=== PATIENT | male | born 1970 | race Caucasian/White ===

== ENCOUNTER 2024-08-25 14:37 | Emergency (ER) | payer MEDICARE, MEDICAID, SELFPAY ==
[2024-08-25 14:41] VITALS: BP 146/92; PULSE 100; RESP 16; TEMP 36.4; O2SAT 95
[2024-08-25 14:59] VITALS: BP 146/92; PULSE 100; RESP 16; TEMP 36.4; O2SAT 95
--- NOTE | 2024-08-25 15:00 | DI.RAD_ITS ---
Exam(s) XR KNEE LT 3V AP,LAT,CASI EXAM: XR KNEE LT 3V AP,LAT,CASI CLINICAL HISTORY: acute on chronic left knee pain. TECHNIQUE: 2D digital imaging was performed. COMPARISON: No exams were available for comparison FINDINGS: 3 views No evidence of acute fracture nor obvious joint effusion. However, there are osteoarthritic degenerative changes which are most prominent in the patellofemoral compartment where there appears to be advanced narrowing and degenerative subarticular cysts on both sides of this joint space. There are milder-moderate degenerative changes in the medial lateral com partments. No ominous osseous lesions. No radiopaque foreign bodies. IMPRESSION: Degenerative changes, most prominent in the patellofemoral compartment. If clinically indicated genaro tional merchant's view can be performed. DATA REPOSITORY: RADIATION DOSE DELIVERED:
--- NOTE | 2024-08-25 15:03 | ED.GENADUL_ITS ---
Discharge Plan Disposition Patient Disposition: Home Condition: Improving Discharge Details Clinical Impression: Osteoarthritis Primary Care Provider: Unknown,Unknown ED Provider: Joce Thrasher Home Meds and New Rx's Prescriptions: New furosemide [Lasix] 40 mg tablet 40 mg PO DAILY 5 Days Qty: 5 0RF No Action omeprazole 20 mg capsule,delayed release(DR/EC) 20 mg PO BID amitriptyline 10 mg tablet 20 mg PO BID pregabalin [Lyrica] 25 mg capsule 25 mg PO BID celecoxib [Celebrex] 200 mg capsule 200 mg PO BID Discharge Instructions Instructions: Osteoarthritis Additional Instructions: Please follow-up with orthopedic team regarding your osteoarthritis of left knee to consider further diagnostic and treatment modalities. Please return to the emergency department for any worsening symptoms HPI General Date/Time Provider Initiated Documentation: 08/25/24 14:46 . HPI Narrative: 64-year-old male history of peripheral edema obesity chronic left knee pain presents with acute on chronic left knee pain over the past several weeks to months, twisted his knee has had pain for some time, has history of gel injections and steroid injections without long-term benefit, denies fevers chills nausea vomiting chest pain shortness of breath or other systemic signs of illness. Has noticed some swelling in bilateral lower extremities, endorses that usually this time of year his edema gets worse. Has been without a doctor for some time was on Lasix at some point. Related Data Home Medications ?Medication ?Instructions ?Recorded ?Confirmed amitriptyline 10 mg tablet 20 mg PO BID 08/25/24 08/25/24 celecoxib 200 mg capsule (Celebrex) 200 mg PO BID 08/25/24 08/25/24 furosemide 40 mg tablet (Lasix) 40 mg PO DAILY 5 days #5 tabs 08/25/24 omeprazole 20 mg capsule,delayed 20 mg PO BID 08/25/24 08/25/24 release pregabalin 25 mg capsule (Lyrica) 25 mg PO BID 08/25/24 08/25/24 Previous Rx's ?Medication ?Instructions ?Recorded furosemide 40 mg tablet (Lasix) 40 mg PO DAILY 5 days #5 tabs 08/25/24 Allergies Allergy/AdvReac Type Severity Reaction Status Date / Time No Known Allergies Allergy Unverified 08/25/24 14:44 General Stated Complaint: Cellulitis SHANNON: 3 Exam Narrative Exam Narrative: Alert interactive Moist mucous membranes tolerating secretions Normal voice no stridor Speaking full sentences no respiratory stress lungs clear bilaterally no wheeze rales or rhonchi Normal heart sounds no murmurs rubs or gallops Abdomen soft nontender nondistended Bilateral peripheral edema to level of shins with chronic venous stasis changes No areas of erythema induration fluctuance purulence or lymphangitic streaking Left knee effusion without erythema induration or warmth, able to flex and extend both actively and passively, normal right knee examination DP pulses intact, sensation intact bilaterally Alert oriented moving all extremities ambulatory without assistance Course Vital Signs Vital signs: Vital Signs Temperature 36.4 C 08/25/24 14:41 Pulse 100 H 08/25/24 14:41 Respiratory Rate 16 08/25/24 14:41 Blood Pressure 146/92 H 08/25/24 14:41 Pulse Oximetry 95 08/25/24 14:41 Temperature 36.4 C 08/25/24 14:59 Temperature Source Oral 08/25/24 14:59 Pulse 100 H 08/25/24 14:59 Respiratory Rate 16 08/25/24 14:59 Respiratory Effort Normal 08/25/24 14:59 Blood Pressure 146/92 H 08/25/24 14:59 Blood Pressure Position Sitting 08/25/24 14:59 Pulse Oximetry 95 08/25/24 14:59 Oxygen Delivery Method Room Air 08/25/24 14:59 Oxygen Flow Rate 0 08/25/24 14:41 Pain Level 8 08/25/24 14:41 Medical Decision Making 54-year-old male presents with acute on chronic left knee pain over the last several weeks to months, believes he may have twisted his knee, denies fevers chills or other systemic signs of illness, bilateral peripheral edema consistent with fluid retention patient endorses fluctuating edema over the last couple of years worse in the cooler months, no chest pain or shortness of breath no hypoxia no tachypnea, hypertension tachycardia likely related to discomfort, patient has effusion to left knee with passive and active range of motion intact, warm well-perfused extremities sensate, ambulatory without assistance, no crepitus laxity or deformity to knee noted, high clinical suspicion for progressive osteoarthritis lower suspicion for septic joint given afebrile status chronic nature and range of motion intact lower suspicion for hemarthrosis given no definitive trauma although patient did sense that he may have twisted his knee in the last couple of weeks. Will provide analgesia anti- inflammatory and a dose of Lasix as patient has been intermittently on Lasix for some time however has been without a physician and does not have a prescription for Lasix anymore. Low suspicion for ACS, acute CHF exacerbation cellulitis deep space abscess fasciitis or vascular insult. Close reassessment symptomatology, screening x-ray, likely orthopedic referral 15: 57 patient feeling much better resting notably no acute distress. Evidence of chronic degenerative changes consistent with osteoarthritis of the left knee. Will be given orthopedic referral. Will prescribe Lasix for home treatment of peripheral edema. Home care instructions and return precautions given Quality:SDOH Health Related Social Needs: No Data to Display PFSH All Active Problems (Updated 08/25/24 @ 15:58 by Joce Thrasher MD) Osteoarthritis (Chronic) Social History Smoking risk assessment performed?: No
[2024-08-25] MEDS: Ketorolac 15 MG/ML VIAL IM (15:09)
[2024-08-25] MEDS: oxyCODONE 5 mg/Acetaminophen 325 mg TAB 1 TAB PO (15:10)
[2024-08-25] MEDS: Furosemide 20 MG TAB 40 MG PO (15:15)
== END 2024-08-25 16:05 | disposition home or self-care (01) ==
PROVIDERS: Emergency Provider Emergency Medicine
DX: M19.071 Primary osteoarthritis, right ankle and foot (principal)
CPT/HCPCS: 73562; 99283; J1885

== ENCOUNTER 2024-09-16 10:27 | Emergency (ER) | payer MEDICARE, MEDICAID, SELFPAY ==
[2024-09-16] VITALS (7 sets, daily range): BP systolic 103–137; BP diastolic 60–86; PULSE 58–78; RESP 14–21; TEMP 36.4; O2SAT 94–97
--- NOTE | 2024-09-16 10:30 | RT.EKG_ITS ---
APPROVED REPORT Exam: Resting ECG Reason for Exam: chest pain Patient Location: E HR:71 bpm ECG Measurements Heart Rate 71 AXIS DE 155 P 42 QRSd 100 QRS 82 QT 375 T 32 QTc 406 Conclusion Sinus rhythm...normal P axis, V-rate 60- 99 Physician: no stemi
[2024-09-16 11:08] LABS: Abs Immature Grans 0.02 10^3/uL (0.0-0.06); Absolute Basophil Count 0.04 10^3/uL (0.0-0.2); Absolute Eosinophil Count 0.13 10^3/uL (0.0-0.7); Absolute Lymphocyte Count 2.22 10^3/uL (1.2-3.4); Absolute Monocyte Count 0.52 10^3/uL (0.1-0.8); Absolute Neutrophil Count 3.54 10^3/uL (1.2-6.7); Basophils % 0.6 %; HCT 43.3 % (40.0-50.0); HGB 14.7 g/dL (13.5-17.5); Immature Grans % 0.3 %; Lymphocytes % 34.3 %; MCH 30.2 pg (27.0-33.0); MCHC 33.9 % (32.0-36.0); MCV 89 fL (80-95); Neutrophils % 54.8 %; Platelet Count 198 10^3/uL (130-400); RBC 4.86 10^6/uL (4.36-5.78); RDW 13.3 % (11.8-14.1); WBC 6.47 10^3/uL (4.4-10.8)
--- NOTE | 2024-09-16 11:22 | DI.RAD_ITS ---
Exam(s) XR PORTABLE CHEST AP EXAM: XR PORTABLE CHEST AP CLINICAL HISTORY: sob TECHNIQUE: 2D digital imaging was performed of the chest. One image was obtained. An AP view was ob tained. COMPARISON: No exams were available for comparison FINDINGS: MEDIASTINUM: Normal. HEART: Normal. PULMONARY VASCULATURE: Normal. LUNGS: Clear. PLEURAL SPACE: No pleural effusion or pneumothorax. BONE:Within normal limits for the patient's age. OTHER FINDINGS:Normal. IMPRESSION: No acute pulmonary findings. DATA REPOSITORY: RADIATION DOSE DELIVERED:
[2024-09-16 11:25] LABS: PTT Activated 24.5 sec (23.6-32.8); Prothrombin Time 10.1 sec (9.1-11.1)
[2024-09-16 11:30] LABS: ALT 60 U/L (16-63); AST 44 U/L (15-37); Alkaline Phosphatase 78 U/L (46-116); Anion Gap 5.9 mmol/L (3-11); BUN 22 mg/dL (7-18); Bilirubin, Total 0.56 mg/dL (0.2-1.0); CO2 29.1 mmol/L (21.0-32.0); CREATININE 1.1 mg/dL (0.70-1.30); Calcium 9.4 mg/dL (8.5-10.1); Chloride 107 mmol/L (98-107); Estimated GFR 80.27 (mL/min/1.73m2); Glucose 102 mg/dL (74-106); Magnesium 2.2 mg/dL (1.8-2.4); Potassium 4.8 mmol/L (3.5-5.1); Sodium 142 mmol/L (136-145); Total Protein 7.8 g/dL (6.4-8.2); Troponin I 5 ng/L (<or=76)
[2024-09-16 12:35] LABS: Troponin I 7 ng/L (<or=76)
--- NOTE | 2024-09-16 12:41 | W.ED.GENAD ---
Discharge Plan Disposition Patient Disposition: Home Condition: Good Discharge Details Clinical Impression: Chest discomfort, Candidiasis of mouth Primary Care Provider: Unknown,Unknown ED Provider: Sumanth Salazar Home Meds and New Rx's Prescriptions: New nystatin 100,000 unit/mL suspension 1 ml PO QID 10 Days Qty: 40 0RF Rx Instructions: swish and swallow No Action omeprazole 20 mg capsule,delayed release(DR/EC) 20 mg PO BID amitriptyline 10 mg tablet 20 mg PO BID pregabalin [Lyrica] 25 mg capsule 25 mg PO BID celecoxib [Celebrex] 200 mg capsule 200 mg PO BID Discharge Instructions Instructions: Thrush in adults, Chest Pain, Adult ED Additional Instructions: At this time it is our recommendations that you get a stress test for further evaluation of your heart. You have decided to hold off on any inpatient stress testing at this time. Please follow-up closely with your primary care provider for reassessment and establishment of stress testing on an outpatient basis. Please take the oral nystatin to help with the thrush. If you notice any worsening of your symptoms, or any new symptoms such as vomiting, diarrhea, fever, chills, shortness of breath, chest pain, numbness, weakness, or fainting , please return immediately to the emergency department for reevaluation. Please follow up with your primary care provider as soon as possible for reassessment and reevaluation. As always, it was a pleasure participating in your medical care today. Referrals: Angeline Weaver NP [NURSE PRACTITIONER] - [facility] General Date/Time Provider Initiated Documentation: 09/16/24 10:37. HPI Narrative: 54-year-old male with past medical history of obesity, family history of heart disease, presents today for evaluation of chest discomfort. Patient states that within the past month he had been admitted to [facility], where he had a stable workup but was scheduled to get a stress test. Unfortunately he was unwilling to wait and he left prior to the stress test being done. He blames this secondary to not being able to have the ride needed to get home if he had to wait another 2 days. Since then patient states that he has been doing okay but over the last 3 to 4 days he has had some mild chest discomfort she describes as [id number] and achy in the left chest going to the left arm. He is short of breath in the morning, but denies any pleuritic chest pain. He denies any worsening of his symptoms with exertion for the chest pain but does state that his shortness of breath is notably worse with mild activities. He has a strong family history of cardiac disease, but denies any personal history. He denies any vomiting or diarrhea. He denies any other complaints at this time. He does not currently smoke. Related Data Home Medications ?Medication ?Instructions ?Recorded ?Confirmed amitriptyline 10 mg tablet 20 mg PO BID 08/25/24 09/16/24 celecoxib 200 mg capsule (Celebrex) 200 mg PO BID 08/25/24 09/16/24 omeprazole 20 mg capsule,delayed 20 mg PO BID 08/25/24 09/16/24 release pregabalin 25 mg capsule (Lyrica) 25 mg PO BID 08/25/24 09/16/24 nystatin 100,000 unit/mL oral 1 ml PO QID 10 days #40 mL 09/16/24 suspension Previous Rx's ?Medication ?Instructions ?Recorded nystatin 100,000 unit/mL oral 1 ml PO QID 10 days #40 mL 09/16/24 suspension Allergies Allergy/AdvReac Type Severity Reaction Status Date / Time No Known Allergies Allergy Unverified 09/16/24 10:37 General Stated Complaint: Chest Pain SHANNON: 2 Review of Systems All systems reviewed & are unremarkable except as noted in HPI and below Exam Narrative Exam Narrative: 1.Const: Well-nourished, Well-developed, appearing stated age 2.Eyes: PERRL, no conjunctival injection, and symmetrical lids. 3.ENT: Atraumatic external nose and ears. Moist MM. Neck: Symmetric, trachea midline, No thyromegaly. Mild evidence of thrush on the patient's tongue 4.CVS: +S1/S2, Peripheral pulses 2+ and equal in all extremities. Brisk capillary refill in all extremities. 5.RESP: Unlabored respiratory effort. Clear to auscultation bilaterally. No wheezes rales or rhonchi 6.GI: Soft, Nontender/Nondistended, No hepatosplenomegaly. No guarding or rebound. 7.MSK: Normocephalic/Atraumatic, Extremities w/o deformity or ttp No cyanosis or clubbing, Normal movement of all extremities 8.Skin: Warm, Dry. No rashes or lesions. 9.Neuro: clay products glazer II-XII grossly intact. Sensation grossly intact, no focal neurologic deficits. 10.Psych: (AAO) x3. Appropriate mood and affect Course Vital Signs Vital signs: Vital Signs Temperature 36.4 C 09/16/24 10:32 Pulse 76 09/16/24 10:32 Respiratory Rate 14 09/16/24 10:32 Blood Pressure 137/86 09/16/24 10:32 Pulse Oximetry 96 09/16/24 10:32 Temperature 36.4 C 09/16/24 10:32 Temperature Source Oral 09/16/24 10:32 Pulse 76 09/16/24 10:32 Respiratory Rate 18 09/16/24 11:04 Respiratory Effort Normal 09/16/24 11:04 Respiratory Depth Normal 09/16/24 11:04 Respiratory Pattern Normal 09/16/24 11:04 Blood Pressure 137/86 09/16/24 10:32 Blood Pressure Position Sitting 09/16/24 10:32 Pulse Oximetry 96 09/16/24 10:32 Oxygen Delivery Method Room Air 09/16/24 10:32 Oxygen Flow Rate 0 09/16/24 10:32 Pain Level 5 09/16/24 10:32 Lab/Test Results Lab/Test Results: Laboratory Tests Range/Units 09/16/24 10:56 WBC (4.4-10.8) 10^3/uL 6.47 RBC (4.36-5.78) 10^6/uL 4.86 Hgb (13.5-17.5) g/dL 14.7 Hct (40.0-50.0) % 43.3 MCV (80-95) fL 89 MCH (27.0-33.0) pg 30.2 MCHC (32.0-36.0) % 33.9 RDW (11.8-14.1) % 13.3 Plt Count (130-400) 10^3/uL 198 MPV (8.0-11.0) fL 9.0 Immature Gran % % 0.3 Neutrophils % % 54.8 Lymphocytes % % 34.3 Monocytes % % 8.0 Eosinophils % % 2.0 Basophils % % 0.6 Nucleated RBC % (0.0-0.3) % 0.0 Absolute Neutrophils (1.2-6.7) 10^3/uL 3.54 Absolute Lymphocytes (1.2-3.4) 10^3/uL 2.22 Absolute Monocytes (0.1-0.8) 10^3/uL 0.52 Absolute Eosinophils (0.0-0.7) 10^3/uL 0.13 Absolute Basophils (0.0-0.2) 10^3/uL 0.04 PT (9.1-11.1) sec 10.1 INR (0.9-1.1) 1.0 APTT (23.6-32.8) sec 24.5 Sodium (136-145) mmol/L 142 Potassium (3.5-5.1) mmol/L 4.8 Chloride (98-107) mmol/L 107 Carbon Dioxide (21.0-32.0) mmol/L 29.1 Anion Gap (3-11) mmol/L 5.9 BUN (7-18) mg/dL 22 H Creatinine (0.70-1.30) mg/dL 1.1 Est GFR (CKD-EPI 2020) (mL/min/1.73m2) 80.27 Glucose (74-106) mg/dL 102 Calcium (8.5-10.1) mg/dL 9.4 Magnesium (1.8-2.4) mg/dL 2.2 Total Bilirubin (0.2-1.0) mg/dL 0.56 AST (15-37) U/L 44 H ALT (16-63) U/L 60 Alkaline Phosphatase (46-116) U/L 78 Troponin I (<or=76) ng/L 5 Total Protein (6.4-8.2) g/dL 7.8 Albumin (3.4-5.0) g/dL 4.0 Medical Decision Making 54-year-old male with past medical history of obesity, family history of heart disease, presents today for evaluation of chest discomfort. Patient states that within the past month he had been admitted to [facility], where he had a stable workup but was scheduled to get a stress test. Unfortunately he was unwilling to wait and he left prior to the stress test being done. He blames this secondary to not being able to have the ride needed to get home if he had to wait another 2 days. Since then patient states that he has been doing okay but over the last 3 to 4 days he has had some mild chest discomfort she describes as [id number] and achy in the left chest going to the left arm. He is short of breath in the morning, but denies any pleuritic chest pain. He denies any worsening of his symptoms with exertion for the chest pain but does state that his shortness of breath is notably worse with mild activities. He has a strong family history of cardiac disease, but denies any personal history. He denies any vomiting or diarrhea. He denies any other complaints at this time. He does not currently smoke. Exam demonstrates well-appearing male, hemodynamically stable. Radial pulses are +2, and equal. No calf tenderness or pitting edema. No reproducible chest wall discomfort. EKG shows no evidence of STEMI. Differential includes stable versus slight symptoms of unstable angina. Symptoms appear inconsistent with significant PE or dissection. He has no hypoxemia or tachycardia here. Symptoms appear inconsistent with pneumothorax. Chest x-ray negative for acute process. Will evaluate for acute etiology currently, with potential plan for stress testing. Unfortunately no stress testing is available today. 1:28 PM Laboratory workup is returned, initial and repeat troponin are less than 15. proBNP normal suggesting no signs of heart strain. Electrolytes normal, renal function normal, patient feels well. Patient is pain-free. After review of labs and EKG and imaging there does not appear to be any evidence of acute life-threatening etiology or ACS actively at this time, however I am concerned with the patient's risk factors and symptoms over the last month. I did recommend to the patient that he stay for stress testing.At this time through notable discussion, weighing the risks and benefits, and a shared decision making process the patient has refused stress testing at this time. Patient is of an appropriate age to make decisions. The patient is of sound mind, appears clinically sober, and has capacity to make decisions by my clinical exam. Patient declines admission, and request to follow-up outpatient with his PCP for stress testing. Patient stable for discharge at this time. Discussed red flags for which to return. Additionally patient does have evidence of mild thrush on his tongue, we will prescribe nystatin wash. I have extensively reviewed the treatment plan and discharge instructions with the patient. I have addressed all patient concerns at this time. The patient was made aware of what symptoms to monitor for that would warrant a return to the emergency department. Discussed the plan with the patient, they demonstrate verbal understanding and agreement with our assessment and plan at this time. The documentation in this chart was dictated using Mayomi dictation software. Please excuse any dictation errors. FINDINGS: MEDIASTINUM: Normal. HEART: Normal. PULMONARY VASCULATURE: Normal. LUNGS: Clear. PLEURAL SPACE: No pleural effusion or pneumothorax. BONE:Within normal limits for the patient's age. OTHER FINDINGS:Normal. IMPRESSION: No acute pulmonary findings. Quality:SDOH Health Related Social Needs: No Data to Display PFSH All Active Problems (Updated 09/16/24 @ 13:36 by Sumanth Salazar DO) Candidiasis of mouth (Acute) Chest discomfort (Acute) Osteoarthritis (Chronic) Social History Smoking/Tobacco Use Status: Former Tobacco Use Quit Date: 11/11/13 Smoking risk assessment performed?: Yes Alcohol Intake: former Substance use type: does not use Housing: apartment Do you feel safe at home: Yes Do you feel safe in your relationship?: Yes
[2024-09-16 12:45] LABS: NT-proBNP 8 pg/mL (<300)
== END 2024-09-16 13:43 | disposition home or self-care (01) ==
PROVIDERS: Emergency Provider Student in an Organized Health Care Education/Training Program
DX: R07.9 Chest pain, unspecified (principal); B37.0 Candidal stomatitis; Z82.49 Family history of ischemic heart disease and other diseases of the circulatory system; Z87.891 Personal history of nicotine dependence
CPT/HCPCS: 80053; 93005; 99285; 71045; 83735; 83880; 84484; 85025; 85610; 85730; 93010; 99284

== ENCOUNTER → 2024-09-18 07:54 | Outpatient (BNVA) | payer MEDICARE, MEDICAID, SELFPAY | DX: M17.12 Unilateral primary osteoarthritis, left knee (principal); E66.9 Obesity, unspecified; Z68.42 Body mass index [BMI] 45.0-49.9, adult | CPT/HCPCS: 99213 ==

== ENCOUNTER 2024-12-30 02:36 | Outpatient (CLI) | payer MEDICARE, MEDICAID, SELFPAY ==
[2024-12-30 14:14] LABS: ALT 46 U/L (16-63); AST 33 U/L (15-37); Alkaline Phosphatase 73 U/L (46-116); Anion Gap 7.9 mmol/L (3-11); BUN 17 mg/dL (7-18); Bilirubin, Total 0.48 mg/dL (0.2-1.0); CO2 27.1 mmol/L (21.0-32.0); Calcium 9.3 mg/dL (8.5-10.1); Calculated LDL 157 mg/dL (<100); Chloride 105 mmol/L (98-107); Cholesterol 244 mg/dL (<200); Folate 15.4 ng/mL (8.6-20.0); Glucose 98 mg/dL (74-106); HDL Cholesterol 44 mg/dL (40-60); Potassium 4.2 mmol/L (3.5-5.1); Sodium 140 mmol/L (136-145); TSH (W/Ref FT4) 4.89 uIU/mL (0.36-3.74); Total Protein 7.7 g/dL (6.4-8.2); Triglyceride 216 mg/dL (<150); Vitamin B12 285 pg/mL (193-986)
[2024-12-30 18:21] LABS: FREE T4 0.75 ng/dL (0.76-1.46)
[2024-12-31 11:34] LABS: Hepatitis C Ab w Rflx HCV PCR Negative (Negative)
[2024-12-31 12:02] LABS: HIV-1/2 Ag & Ab Screen Negative (Negative)
== END 2024-12-30 02:37 | disposition home or self-care (01) ==
PROVIDERS: PCP Nurse Practitioner Adult Health; Visit Provider Nurse Practitioner Adult Health
DX: I10 Essential (primary) hypertension (principal); E78.2 Mixed hyperlipidemia; K21.01 Gastro-esophageal reflux disease with esophagitis, with bleeding; Z11.4 Encounter for screening for human immunodeficiency virus [HIV]; Z11.59 Encounter for screening for other viral diseases
CPT/HCPCS: 36415; 80053; 80061; 86803; 87389; 82607; 82746; 84439; 84443

== ENCOUNTER → 2025-03-15 13:48 | Outpatient (BNVA) | payer MEDICARE, MEDICAID, SELFPAY | PROVIDERS: PCP Nurse Practitioner Adult Health; Visit Provider Student in an Organized Health Care Education/Training Program | DX: M17.12 Unilateral primary osteoarthritis, left knee (principal) | CPT/HCPCS: 20610; 99213; J1010 ==

== ENCOUNTER 2025-05-05 01:30 | Outpatient (CLI) | payer MEDICARE, MEDICAID, SELFPAY ==
[2025-05-05 10:27] LABS: FREE T4 0.67 ng/dL (0.76-1.46)
[2025-05-05 12:57] LABS: Calculated LDL 144 mg/dL (<100); Cholesterol 232 mg/dL (<200); HDL Cholesterol 39 mg/dL (>or=40); Triglyceride 247 mg/dL (<150)
== END 2025-05-05 01:31 | disposition home or self-care (01) ==
LOC: LBO 01:30
PROVIDERS: PCP Nurse Practitioner Adult Health; Referring Provider Nurse Practitioner Adult Health; Visit Provider Nurse Practitioner Adult Health
DX: E03.9 Hypothyroidism, unspecified (principal); E78.2 Mixed hyperlipidemia
CPT/HCPCS: 36415; 80061; 84439; 84443

== ENCOUNTER 2025-05-28 00:21 | Outpatient (CLI) | payer MEDICARE, MEDICAID, SELFPAY ==
--- NOTE | 2025-05-28 07:00 | DI.CT_ITS ---
Exam(s) CT NECK W EXAM: CT NECK W INDICATION: MASS RT SIDE OF NECK, COMPARE TO 07/2024 CT [place] [facility] [place] COMPARISON: CT CT SOFT TISSUE NECK W CONTRAST from 08/03/2024 TECHNIQUE: BB marker placed over area of concern lower right neck FINDINGS: Immediately subjacent to the BB marker on the posterior lower right neck region there is a subcutaneous lipoma which measures 4 cm wide by 3 cm craniocaudal by 4 cm AP. This benign-appearing lesion does not exhibit enhancing nodularity. There is no regional lymphadenopathy. VISUALIZED PARANASAL SINUSES: Unremarkable. NASOPHARYNX: Unremarkable ORODENTAL: Unremarkable. OROPHARYNX: Unremarkable. No masses evident. HYPOPHARYNX: Unremarkable. Valleculae and epiglottis and aryepiglottic folds appear normal. VOCAL CORDS: Unremarkable. No masses evident. Subglottic airway appears unremarkable. THYROID GLAND: Unremarkable. Normal size and no obvious nodules. SALIVARY GLANDS: Unremarkable. No significant findings in the parotid and submandibular glands. LYMPH NODES: There is no adenopathy evident in the neck and supraclavicular regions. OTHER: VISUALIZED LUNG APICES: No significant findings. IMPRESSION: 1. There is a benign-appearing subcutaneous lipoma measuring 4 x 3 x 4 mm located subjacent to the skin marker on the lower posterior aspect of the right- side of the neck. 2. No other focal findings evident and no lymphadenopathy RADIATION DOSE DELIVERED: 616.01mGy.cm Total DLP DATA REPOSITORY: All CT scans at this facility are submitted to the National Radiology Data Registry (NRDR) Dose Index Registry (DIR) with the [employer] ([employer]). RADIATION OPTIMIZATION: All CT scans at this facility use at least one of these dose optimization techniques: automated exposure control; mA and/or kV adjustment per patient size (includes targeted exams where dose is matched to clinical indication); or iterative reconstruction.
[2025-05-28] MEDS: Normal Saline - Diluent 50 ML VIAL IJ (09:10)
[2025-05-28] MEDS: Omnipaque 350 MG/ML 100 ML BTL IJ (09:15)
== END 2025-05-28 00:41 ==
LOC: DI 00:21
PROVIDERS: PCP Nurse Practitioner Adult Health; Visit Provider Nurse Practitioner Adult Health
DX: R22.1 Localized swelling, mass and lump, neck (principal)
CPT/HCPCS: 70491; J3490

== ENCOUNTER 2025-06-14 03:24 | Outpatient (CLI) | payer MEDICARE, MEDICAID, SELFPAY ==
[2025-06-14 10:29] LABS: HCT 42.2 % (40.0-50.0); HGB 14.0 g/dL (13.5-17.5); MCH 29.7 pg (27.0-33.0); MCHC 33.2 % (32.0-36.0); MCV 89 fL (80-95); MPV 8.9 fL (8.0-11.0); Platelet Count 185 10^3/uL (130-400); RBC 4.72 10^6/uL (4.36-5.78); RDW 13.3 % (11.8-14.1); RDW-SD 43.5 fL; WBC 6.82 10^3/uL (4.4-10.8)
[2025-06-14 11:34] LABS: Anion Gap 8.1 mmol/L (3-11); BUN 20 mg/dL (7-18); CO2 28.9 mmol/L (21.0-32.0); Calcium 9.5 mg/dL (8.5-10.1); Chloride 103 mmol/L (98-107); Estimated GFR 89.44 (mL/min/1.73m2); Glucose 99 mg/dL (74-106); Potassium 4.5 mmol/L (3.5-5.1); Sodium 140 mmol/L (136-145)
[2025-06-14 11:54] LABS: Hemoglobin A1C 5.2 % (<5.7)
[2025-06-14 11:56] LABS: TSH (W/Ref FT4) 2.65 uIU/mL (0.36-3.74)
== END 2025-06-14 03:25 | disposition home or self-care (01) ==
LOC: LBO 03:24
PROVIDERS: PCP Nurse Practitioner Adult Health; Visit Provider Student in an Organized Health Care Education/Training Program
DX: E03.9 Hypothyroidism, unspecified (principal); M17.12 Unilateral primary osteoarthritis, left knee; Z01.818 Encounter for other preprocedural examination; R73.03 Prediabetes
CPT/HCPCS: 36415; 80048; 85027; 99024; 73560; 77073; 83036; 84443

== ENCOUNTER 2025-06-14 10:50 | Outpatient (CLI) | payer MEDICARE, MEDICAID, SELFPAY ==
--- NOTE | 2025-06-14 10:04 | DI.RAD_ITS ---
Exam(s) XR KNEE LT 1V XR STANDING ALIGNMENT EXAM: XR STANDING ALIGNMENT and XR knee LT 1 V CLINICAL HISTORY: left knee DJD. TECHNIQUE: 2D digital imaging was performed. Five images were obtained. COMPARISON: CR XR KNEE LT 3V AP,LAT,CASI from 08/25/2024 FINDINGS: BONES: The hips are difficult to visualize due to the patient's body habitus. In the left knee, there is marked narrowing of the patellofemoral joint and mild narrowing of the medial femoral tibial joint. Osteophytes are seen in the lateral femoral tibial joint in the patellofemoral joint. The right knee is well maintained with mild degenerative changes present. The ankles are well maintained.There is no significant leg length discrepancy. SOFT TISSUE: Normal. IMPRESSION: Marked osteoarthritis of the left knee, particularly the patellofemoral joint. DATA REPOSITORY: RADIATION DOSE DELIVERED:
== END 2025-06-14 10:51 | disposition home or self-care (01) ==
LOC: DIORS 10:51
PROVIDERS: PCP Nurse Practitioner Adult Health; Visit Provider Physician Assistant
DX: Z01.818 Encounter for other preprocedural examination (principal); M17.12 Unilateral primary osteoarthritis, left knee
CPT/HCPCS: 99024; 73560; 77073

== ENCOUNTER 2025-06-24 01:17 | Outpatient (CLI) | payer MEDICARE, MEDICAID, SELFPAY ==
--- NOTE | 2025-06-24 06:41 | DI.NM_ITS ---
APPROVED REPORT Exam: Pharmacologic Patient Location: Out-Patient Room/Bed: Stress Nurse: Ariadna Florez RN Ordering Provider:ROMEO GRIFFITH, Contact Number: [phone] BMI: 52.76 Baseline Rhythm: Sinus Rhythm. Indications: Pre-op Clearance; Chest Pain. Medical History Medical History: Hypothyroidism; Depression; Chronic Pain; Sleep Apnea; HLD; HTN; Chest Pain; Tobaccos Abuse; Chronic Prescription Opioid Use; Elevated LFT's. Cardiac Medications: Bupropion; Celebrex; Levothyroxine; Omeprazole; Pregabalin; Sertraline. Allergies: Aripiprazole; Fentanyl; Tramadol. Cardiac Risk Factors: Family Hx; HLD; HTN; Former Smoker; Obesity. Previous Cardiac Procedures: None. Pretest Chest Pain Characteristics: None. Exercise History: None. Physical Disabilities: Left Knee Pain; pt. is awaiting a left total knee replacement. Lung Sounds: Clear bilaterally throughout, anterior and posterior. Heart Sounds: S1 and S2 auscultated. Stress Test Details Test: Pharmacologic stress testing performed using 0.4 mg of regadenoson per 5 mL given IV over 10 seconds. Reason for pharmacologic stress test: physical limitation; inappropriate footwear for walking on the treadmill. Nuclear Acquisition: Rest Tc-99m/Stress Tc-99m 1 day Rest Isotope: Tc-99m Sestamibi. Dose: 14.2 Date: 06/24/2025 Injection Time: 0845 Stress Isotope: Tc-99m Sestamibi. Dose: 44.1 Date: 06/24/2025 Injection Time: 1020 HR Resting HR Supine: 72 bpm Max Heart Rate (APMHR): 166 bpm Target HR (85% APMHR): 141 bpm Max HR Achieved: 98 bpm % of APMHR: 59 Recovery HR: 77 bpm BP Resting BP Supine: 156/80 mmHg Max BP: 156/80 mmHg Recovery BP: 114/80 mmHg ECG Resting ECG: Sinus Rhythm. Ectopy: None. Stress ECG: Sinus Rhythm. ST Change: Nondiagnostic low heart rate. Arrhythmia: None. Recovery ECG: Sinus Rhythm. Recovery ST Change: Nondiagnostic low heart rate. Recovery Arrhythmia: None. Clinical Stress Symptoms: Dyspnea. Angina Score: None Rate Pressure Product: 21723 Stress ECG Conclusion 1. Resting electrocardiogram was normal 2. Patient underwent testing using pharmacologic stress with regadenoson 3. Peak heart rate achieved was 59% of maximal predicted for age 4. The electrocardiographic portion of the test was nondiagnostic 5. There were no significant dysrhythmias 6. See MPI report Stress Test Summary STAGE HR BP SpO2 Symptoms NOTES Supine 72 156/80 94 Pt. is asymptomatic. 1 min post Lexiscan injection 72 120/72 99 Pt. c/o mild shortness of breath. 3 min post Lexiscan injection 83 124/84 98 Pt. states shortness of breath has resolved to baseline. 6 min post Lexiscan injection 77 114/80 98 Pt. is asymptomatic. Pt. performed a nuclear medicine MPI stress test; laying lexiscan protocol was used due to pt. c/o left knee pain (pt. is awaiting a left total knee replacement), as well as, pt. was noted to be wearing footwear that was inappropriate and unsafe for walking on the treadmill. Pt. c/o mild shortness of breath immediately following the lexiscan injection. Pt. stated that the shortness of breath resolved quickly. Pt. was conversing pleasantly with nursing staff upon leaving the Stress Lab and left ambulatory in no apparent distress. MPI Conclusion Myocardial perfusion is normal. There is no ischemia or evidence of prior infarction Ejection fraction is 58% with normal wall motion
[2025-06-24] MEDS: Regadenoson 0.4 MG/5 ML SYR IVP (10:19)
== END 2025-06-24 01:37 ==
LOC: DI 01:17
PROVIDERS: PCP Nurse Practitioner Adult Health; Visit Provider Nurse Practitioner Adult Health
DX: R07.9 Chest pain, unspecified (principal)
CPT/HCPCS: 78452; 93016; 93018; 93017; J2785

== ENCOUNTER 2025-07-06 07:03 | Day surgery (SDC) | payer MEDICARE, MEDICAID, SELFPAY ==
[2025-07-06] VITALS (15 sets, daily range): BP systolic 99–172; BP diastolic 37–103; PULSE 65–83; RESP 12–20; TEMP 36–36.7; O2SAT 95–99; BMI 54.7
--- NOTE | 2025-07-06 07:08 | PDOC.DSDIS_ITS ---
Date of service: 07/06/25 Discharge Plan Disposition Patient Disposition: Home Condition: Good Discharge Details Reason For Visit: Left knee DJD Attending Provider: Deni Jo Primary Care Provider: Angeline Weaver Home Meds and New Rx's Prescriptions: New aspirin 81 mg tablet,delayed release (DR/EC) 81 mg PO BID 30 Days Qty: 60 0RF acetaminophen 500 mg tablet 1,000 mg PO Q8H PRN Qty: 90 0RF Rx Instructions: Take two tablets up to every 8 hours as needed for pain dexamethasone 4 mg tablet 4 mg PO DAILY Qty: 2 0RF Rx Instructions: Take one tablet once daily for two days docusate sodium [Colace] 100 mg capsule 100 mg PO BID Qty: 28 0RF oxycodone 5 mg tablet 5 mg PO Q4H PRNQty: 18 0RF Rx Instructions: Take one tablet up to every 4 hours as needed for severe postoperative pain cefadroxil 500 mg capsule 500 mg PO BID Qty: 14 0RF Continued bupropion HCl 150 mg tablet extended release 24 hr 150 mg PO QAM sertraline 100 mg tablet 100 mg PO BID celecoxib [Celebrex] 200 mg capsule 200 mg PO BID Qty: 180 3RF omeprazole 20 mg capsule,delayed release(DR/EC) 20 mg PO BID Qty: 180 3RF pregabalin [Lyrica] 25 mg capsule 25 mg PO BID Qty: 180 3RF levothyroxine [Synthroid] 75 mcg tablet 75 mcg PO DAILY Qty: 90 3RF Rx Instructions: Dose increase (05/12/2025) Discharge Instructions Additional Instructions: Total Knee Discharge Instructions Activity: The most important activity is to walk and to work on gentle motion (both flexion and extension). You should try to take short walks a few times a day. It is important that when resting you work on keeping the knee straight. Avoid putting a pillow behind the knee as this will encourage flexion. Work on range of motion exercises as provided by Physical Therapy. - Start outpatient physical therapy within 2 weeks (07/20 at 11am). - You should wear the FRAN hose on both legs for 2 weeks. You may remove these at night. You may also use any compression sock in place of the FRAN hose. - Utilize [employer] to review exercises, see videos on exercises and obtain basic information pertaining to your surgery and your recovery. Dressing: Remove the Song wrap by 2 days after your surgery and put on the FRAN stocking given to you from the hospital. Keep the surgical dressing (underneath the SONG wrap) in place for at least one week. After the first week it may be removed and replaced with light gauze and tape or nothing. The wound and dressing may get wet after 3 days but avoid soaking the dressing or otherwise it will need to be changed. Many people prefer covering the dressing with cling wrap (saran wrap) to minimize it from getting soaked. If it gets wet, just pat dry. If it starts to peel off then it will need to be changed. Medications: - You should take Tylenol and anti-inflammatory Celebrex as your primary pain control medications. If the Celebrex is too expensive or not covered, please call the office for another alternative (Advil/Ibuprofen or Naproxen/Aleve) - You have been prescribed a stronger pain medication Oxycodone for breakthrough pain, take as needed as prescribed. - You take a stomach acid reduction agent Omeprazole at baseline continue with this medication to help reduce stomach acid and reflux. - You have also been prescribed a prophylactic antibiotic, cefadroxil, which she will take twice a day for 1 week. - You will be taking Aspirin 81mg twice a day for DVT prevention unless instructed otherwise. - You have also been prescribed Decadron to take to control post-operative nausea and pain. You will start this tomorrow. - If you have constipation you should take Colace (which has been prescribed) or Miralax (which is available [id number]). It takes most people 3-4 days to have a bowel movement. Follow-up: 2 weeks Your first PT visit at [facility] is 07/20 at 11am. If you have any acute concerns or questions, please do not hesitate to contact the office at [phone]. You may contact Dr. Jo with any questions after hours through the hospital at [phone] or on his cell phone at [phone]. Stand Alone Forms: Anesthesia Discharge Inst., Anes.Nerve Block Instructions, Claudia Malagon ([facility]) Referrals: Deni Jo MD [ [facility] STAFF PHYSICIAN, Orthopaedic Surgical] - 07/19/25 9:45 am Equipment/Supplies: Walker Activity:: Elevate Remove Dressings/Wound Care:: Do Not Remove Shower/Bathe:: Cover Diet:: As Tolerated Discharge Orders Discharge Orders: Discharge Order (Routine); Ordered 07/06/25 Ordered By: Sangita Palumbo
--- NOTE | 2025-07-06 08:00 | W.ANESPRE ---
General Info Date of Service Date Performed: 07/06/25 Height: 5 ft 11.75 in Weight: 181.8 kg Body Mass Index (BMI): 54.7 Surgical Procedure: Operation Date: 07/06/25 09:40 Proposed Procedure Side Surgeon p Knee Total Arthroplasty, Cementless CR Left Deni Jo MD Meds Allergies and Home Medications Allergies Allergy/AdvReac Type Severity Reaction Status Date / Time aripiprazole Allergy Unknown Nausea Verified 07/06/25 07:38 fentanyl AdvReac Unknown Other (See Verified 07/06/25 07:38 Comment) tramadol AdvReac Unknown Other (See Verified 07/06/25 07:38 Comment) Home Medication ?Medication ?Instructions ?Recorded bupropion HCl 150 mg 24 hr tablet, 150 mg PO QAM 12/09/24 extended release sertraline 100 mg tablet 100 mg PO BID 12/09/24 celecoxib 200 mg capsule (Celebrex) 200 mg PO BID #180 caps 02/08/25 omeprazole 20 mg capsule,delayed 20 mg PO BID #180 caps 02/08/25 release pregabalin 25 mg capsule (Lyrica) 25 mg PO BID #180 caps 02/08/25 levothyroxine 75 mcg tablet 75 mcg PO DAILY #90 tabs 07/01/25 (Synthroid) acetaminophen 500 mg tablet 1,000 mg (2 x 500 mg) PO Q8H PRN 07/06/25 pain #90 tabs aspirin 81 mg tablet,delayed 81 mg PO BID 30 days #60 tabs 07/06/25 release dexamethasone 4 mg tablet 4 mg PO DAILY #2 tabs 07/06/25 docusate sodium 100 mg capsule 100 mg PO BID #28 caps 07/06/25 (Colace) oxycodone 5 mg tablet 5 mg PO Q4H PRN #18 tabs 07/06/25 Current Visit Medications: Current Medications Generic Name Dose Route Start Last Admin Trade Name Freq PRN Reason Stop Dose Admin Acetaminophen 1,000 mg 07/06/25 06:00 Acetaminophen 500 Mg Tab PO 07/06/25 23:59 PREOP BEATRICE Celecoxib 400 mg 07/06/25 06:00 Celecoxib 200 Mg Cap PO 07/06/25 23:59 PREOP BEATRICE Gabapentin 300 mg 07/06/25 06:00 Gabapentin 300 Mg Cap PO 07/06/25 23:59 PREOP BEATRICE Hydromorphone HCl 0.5 mg 07/06/25 07:06 Hydromorphone 2 Mg/Ml Syr IVP 08/05/25 07:05 Q2H PRN PRN Ringer's Solution 1,000 mls @ 80 mls/hr 07/06/25 06:00 IV 07/06/25 23:59 INFUSION BEATRICE Cefazolin Sodium 3,000 mg/ 100 mls @ 200 mls/hr 07/06/25 06:00 Sodium Chloride IV 07/06/25 23:59 PREOP BEATRICE Tranexamic Acid/Sodium Chloride 1,000 mg in 100 mls @ 600 mls/hr 07/06/25 06:00 IVPB 07/06/25 23:59 PREOP BEATRICE Cefazolin Sodium/Dextrose 1 gm in 50 mls @ 100 mls/hr 07/06/25 08:00 Ancef Duplex IVPB 07/07/25 00:29 Q8H BEATRICE IV Miscellaneous Supplies 1 each 07/06/25 06:00 Iv Access IV 07/06/25 23:59 DIRECTED BEATRICE Oxycodone HCl 0 mg 07/06/25 07:06 Oxycodone 5 Mg Tab PO 08/05/25 07:05 Q3H PRN PRN Pain Sodium Chloride 0 ml 07/06/25 06:00 Normal Saline Flush 10 Ml Syr IV 07/06/25 23:59 PRN PRN Sodium Chloride 0 ml 07/06/25 06:00 Normal Saline 10 Ml Vial IJ 07/06/25 23:59 DIRECTED PRN Sterile Water 0 ml 07/06/25 06:00 Water,Injection,Sterile 10 Ml Vial IJ 07/06/25 23:59 DIRECTED PRN Tranexamic Acid 1,300 mg 07/06/25 07:06 Tranexamic Acid 650 Mg Tab PO 08/05/25 07:05 ONCE PRN postoperative PFSH Active Problems Active Problems: Problem Status Onset Code Lipoma of neck Acute ~07/2024 D17.0 Hypothyroid Chronic ~01/2025 E03.9 Sessile serrated polyp of colon Acute ~05/2022 D12.6 Depression Chronic F32.A Chronic pain Chronic G89.29 History of nicotine use Acute Z87.891 Gastroesophageal reflux disease with esophagitis and hemorrhage Acute K21.01 Sympathetic reflex dystrophy, 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 Sleep apnea Chronic G47.30 Morbid obesity Acute E66.01 Mixed hyperlipidemia Acute E78.2 Essential (primary) hypertension Acute I10 Cervical radiculopathy Chronic M54.12 Osteoarthritis of left knee Acute M17.12 Medical History Medical History Mass of right side of neck (~07/2024) H/O chest pain 03/17/24, 08/25/24, 09/16/24 Chronic prescription opiate use Elevated LFTs Tobacco abuse Surgical History Surgical History Hx of knee surgery from records Hx of appendectomy from records Hx of colonoscopy with polypectomy (~06/01/24) Tobacco Smoking/Tobacco Use Status: Former Tobacco Use Second hand exposure: No Alcohol Alcohol Intake: current Alcohol intake frequency: holidays/special occasions only Substance Use Substance use: Never Substance use type: does not use Vital Signs and Lab Results Vital Signs Most Recent Vital Signs in EMR: Most Recent Vital Signs Temp Pulse Resp BP Pulse Ox 36.7 C 66 16 147/77 H 96 07/06/25 07:39 07/06/25 07:39 07/06/25 07:39 07/06/25 07:39 07/06/25 07:39 Lab Results Complete Blood Count: WBC, (4.4-10.8) 6.82 10^3/uL 06/14/25, 10:20 RBC, (4.36-5.78) 4.72 10^6/uL 06/14/25, 10:20 Hgb, (13.5-17.5) 14.0 g/dL 06/14/25, 10:20 Hct, (40.0-50.0) 42.2 % 06/14/25, 10:20 Plt Count, (130-400) 185 10^3/uL 06/14/25, 10:20 Complete Metabolic Panel: Sodium, (136-145) 140 mmol/L 06/14/25, 10:20 Potassium, (3.5-5.1) 4.5 mmol/L 06/14/25, 10:20 Chloride, (98-107) 103 mmol/L 06/14/25, 10:20 Carbon Dioxide, (21.0-32.0) 28.9 mmol/L 06/14/25, 10:20 BUN, (7-18) 20 mg/dL H 06/14/25, 10:20 Creatinine, (0.70-1.30) 1.0 mg/dL 06/14/25, 10:20 Est GFR (CKD-EPI 2020), (mL/min/1.73m2) 89.44 06/14/25, 10:20 Calcium, (8.5-10.1) 9.5 mg/dL 06/14/25, 10:20 Glucose, (74-106) 99 mg/dL 06/14/25, 10:20 Hemoglobin A1c, (<5.7) 5.2 % 06/14/25, 10:20 Thyroid Panel: TSH, (0.36-3.74) 2.65 uIU/mL 06/14/25, 10:20 Imaging and Studies Imaging and Studies Study information below may be from another EMR and interpreted by another provider. Please see original notes in EMR for more complete details. EKG Summary: 09/16/24: Exam: Resting ECG Reason for Exam: chest pain Patient Location: E HR:71 bpm ECG Measurements Heart Rate 71 AXIS NC 155 P 42 QRSd 100 QRS 82 QT 375 T32 QTc 406 Conclusion Sinus rhythm...normal P axis, V-rate 60- 99 Physician: no stemi I have reviewed and I agree with the emergency room physician's ECG interpretation. Stress Test Summary: 06/24/25: Clinical Stress Symptoms: Dyspnea. Angina Score: None Rate Pressure Product: [id number] Stress ECG Conclusion 1. Resting electrocardiogram was normal 2. Patient underwent testing using pharmacologic stress with regadenoson 3. Peak heart rate achieved was 59% of maximal predicted for age 4. The electrocardiographic portion of the test was nondiagnostic 5. There were no significant dysrhythmias 6. See MPI report Stress Test Summary [id number]. is asymptomatic. 1 min post Lexiscan [id number]. c/o mild shortness of breath. 3 min post Lexiscan [id number]. states shortness of breath has resolved to baseline. 6 min post Lexiscan [id number]. is asymptomatic. Pt. performed a nuclear medicine MPI stress test; laying lexiscan protocol was used due to pt. c/o left knee pain (pt. is awaiting a left total knee replacement), as well as, pt. was noted to be wearing footwear that was inappropriate and unsafe for walking on the treadmill. Pt. c/o mild shortness of breath immediately following the lexiscan injection. Pt. stated that the shortness of breath resolved quickly. Pt. was conversing pleasantly with nursing staff upon leaving the Stress Lab and left ambulatory in no apparent distress. MPI Conclusion Myocardial perfusion is normal. There is no ischemia or evidence of prior infarction Ejection fraction is 58% with normal wall motion Anesthesia Assessment and Plan Anesthesia History Personal History: No History of Anesthesia Complications Family History: No Family History of Anesthesia Complications Exercise Tolerance Exercise Tolerance: Metabolic Equivalents>4 Pertinent Negatives Pertinent Negatives: No Major Cardiovascular Symptoms or Complaints and No Major Pulmonary Symptoms or Complaints Cardiac & Pulmonary Exam Cardiac Exam: Normal S1/S2 Heart Sounds Pulmonary Exam: Clear Bilateral Breath Sounds Implantable Cardiac Device Does patient have a Pacemaker or an ICD?: No Airway Exam Known Difficult Airway: No Mallampati Class: 2 Mouth Opening: Normal (> 3cm) Thyromental Distance: Greater than 3 cm Neck Range of Motion: Full ROM Neck Circumference: Thick Teeth Condition: Edentulous ASA Classification ASA Score: ASA 3 Emergency Case?: No NPO Status NPO Status: NPO Clears >2 hours, Solids >8 hours Anesthesia Plan Resuscitation Status: Full Code Anesthesia Technique: Spinal Anesthesia Airway Planned: Natural Airway Pain Management: Surgeon and patient request nerve block Monitors Used: Standard Monitors Preoperative Comments:: SAB with minimal sedation, GA/ETT backup
[2025-07-06] MEDS: Celecoxib 200 MG CAP 400 MG PO (08:03)
[2025-07-06] MEDS: Acetaminophen 500 MG TAB 1000 MG PO (08:03)
[2025-07-06] MEDS: Gabapentin 300 MG CAP PO (08:03)
[2025-07-06] MEDS: Lactated Ringers 1,000 ML 80 ML IV (08:06)
--- NOTE | 2025-07-06 09:06 | W.PM.OP ---
Operative Note Operative Note PRE-OP DIAGNOSIS: LEFT Knee Osteoarthritis POST-OP DIAGNOSIS: same PROCEDURE: Left Total Knee Replacement SURGEON: Deni Jo TIME CLOCK MECHANIC: Sangita Palumbo ANESTHESIA TYPE: Spinal Refer to Anesthesia Record ESTIMATED BLOOD LOSS: 250 PATHOLOGY: none sent TOURNIQUET TIME: 0 COMPLICATIONS: None Patient was transported to: PACU Patient's condition: stable Implants: 1. Depuy Attune Cementless Cruciate Retaining Femoral Component, Size 6 2. Depuy Attune Cementless Fixed Bearing Tibial Component, Size 7 3. Depuy Attune 6x10mm CR/FB Poly 4. Depuy Attune Patellar Component, Size 38mm Indications: I have seen Zach in clinic for symptoms of knee arthritis, confirmed with radiographic findings. He has exhausted nonoperative methods and was having significant limitations in daily function and desired better function and less pain. I discussed the technical details of a knee replacement. I explained the risks of the procedure to include, but not limited to, bleeding, infection, pain, stiffness, fracture, damage to nerves and vessels, damage to muscles and tendons, loosening, need for repeat procedure, blood clot and cardiopulmonary demise. Despite these risks, Zach elected to proceed. Findings: There was significant signs of arthritis throughout the knee mostly involving the trochlea and patella but also throughout medial and lateral compartments. Procedure Description: Zach was greeted in the preoperative holding area where the correct side was identified and marked. The consent was reviewed with the patient and signed. The history and physical was updated. All questions were answered. Preoperative medications were administered: Acetaminophen 1000mg, Celebrex 400mg, and Gabapentin 300mg. An adductor canal block was then administered by the anesthesia team in the DSU. Zach was taken back to the operating room. A spinal anesthestic was then administered. The patient was placed into the supine position on the operating room table. Posts were placed for positioning during the procedure. All bony prominences were well padded. Prophylactic antibiotics in the form of Cefazolin were administered. 1g of Tranxemic Acid was given intravenously within 30 minutes of incision. The left leg was then prepped with Chloraprep and draped in a standard fashion with impervious stockinette. A second prep with Chloraprep was performed prior to application of Iodine impregnated skin protection. A timeout to confirm correct identity, side and site, procedure, allergies, anesthesia, and medical concerns was performed. With the knee in some flexion, a midline incision was made overlying the knee. Full thickness skin flaps were raised once the extensor mechanism was encountered. These were raised medially and laterally. Any bleeding was controlled with electrocautery. Once the extensor mechanism was fully exposed, a medial parapatellar arthrotomy was performed in a flexed position. All bleeding from the arthrotomy and the geniculate arteries was coagulated. A medial subperiosteal peel was performed with electrocautery to the midcoronal plane. The fat pad was removed while keeping the patellar tendon protected. The anterior distal femur synovium was removed for later visualization. The ACL and PCL were resected and the anterior horn of the lateral meniscus was transected. The knee was then flexed with the patella everted. There was significant loss of cartilage and eburnation of bone of the trochlea. Using a step drill, and based on preoperative templating, the femoral canal was entered. This was done with a step drill without any difficulty. The intramedullary distal femoral cut guide was inserted, set to a 6 degree valgus cut and 9mm cut thickness. The distal femoral cut guide was then held in position and pinned. With the soft tissues protected, the distal cut was performed. This was passed over a few times to ensure a planar cut. I then turned attention to the tibia. The extramedullary guide was placed onto the leg. The distal aspect was slid medial to adjust for position of center of ankle and stay in line with shaft of the tibia. Approximately 5 degrees of posterior slope was kept in the proximal cutting guide. The center of the guide was aligned with the PCL. The stylus was used to assess cut thickness. The medial side, most involved side, was set for a 4mm cut. This was then held in position and pinned into place with 2 additional pins and a cross pin for stability. The medial and lateral collateral ligaments were protected and the cut was performed. With this completed, it was assessed and noted to be of appropriate dimensions. The guide was removed. A spacer block was inserted and the knee was brought into extension. The 8mm spacer block provided full extension, without hyperextension and with stability of both the medial and lateral collateral ligaments was assessed. The pins from the femur and the tibia were then removed. The distal femur was then sized. The anterior stylus was placed onto the lateral ridge of the anterior femur. This indicated a size 6 femur. The external rotation of the guide was adjusted to 0 degrees to match the epicondylar axis, perpendicular to Pinellas?s line. The 4-in-1 cutting guide was the placed. The posterior medial femur cut was evaluated and appeared of good thickness. The spacer block was inserted underneath the cutting guide and stability was confirmed in 90 degrees of flexion. An clara wing was used to confirm appropriate position of the anterior cut to avoid notching. This cutting guide was ensured to be flush on the cut surface and then pinned into place with headed pins. While protecting the soft tissues, quad tendon, and collateral ligaments, the anterior and posterior cuts were performed with a saw. The central two pins were removed and the posterior and anterior chamfers were cut next. The notch-cutting guide was placed. This was pinned to lateralize the femoral component as much as possible while keeping it flush on the cut surface. This was then pinned into position. A reciprocating saw was used to make the notch cut. A rasp smoothed the cut surfaces. The medial and lateral menisci were removed. A trial femoral component was then inserted, impacted down to the cut surfaces, and the lug holes were drilled. A provisional trial tibial component was placed and the knee was brought through range of motion. The polyethylene was trialed until there was good flexion and extension with excellent stability to the medial and lateral collaterals. The patella was tracking without thumbs. A size 10mm polyethylene component provided the best range of motion and stability with less than 2mm gapping with medial and lateral stress and full extension without significant hyperextension. The tibial cut surface was fully exposed. The tibia was then sized as a 7. The tibia had been previously marked during trialing to correspond to the center of the tibial component to help with rotation. The trial was aligned to this donna, approximately rotated to the medial 1/3rd of the tibial tubercle. The trial was pinned into place. The tibia was prepared with a reamer and a keel punch and lug holes. The knee was then brought into extension and the patella was measured as 23mm. Using the patellar clamp and cut guide, this was resected to a flat surface with at least 13mm of thickness remaining. The size 38mm patella fit the best. This was oriented and then clamped into position. The lugs were drilled. The trial components were removed. The final components were opened on the back table. The periosteal and capsular tissues, especially posteriorly, around the knee were then systematically injected with a periarticular cocktail consisting of 246mg of Ropivacaine, 0.5mg of Epinephrine, 0.08mg of Clonidine, and 30mg of Ketorolac, diluted to 100cc. On the back table, with the implants opened. The cement was mixed. One batch of high viscosity cement was prepared with vacuum assistance. After the cement was ready a small amount was placed on the cut surface of the patella and the patellar button was clamped into position and held. The cementless knee components were placed. Starting with the tibial component, the tibia was subluxed anteriorly and the lug holes of the component were lined up. The tibia was then impacted with an impactor and mallet until the tibial component was in contact with the tibia. Then, the femoral component was inserted. The lug holes were aligned and the component was impacted into position. The final polyethylene component was inserted. The knee was irrigated with Surgiphor Betadine solution. This was allowed to sit in the knee for 3 minutes and then it was irrigated out with saline. After the cement had finally cured, approximately 15min, the clamp was removed from the patella and the knee was taken through range of motion. The patella was tracking with a no-thumbs technique. A complete synovectomy was performed around the periphery of the patella. The capsule was then reapproximated with a No. 1 Vicryl at multiple locations. The capsule was finally closed with a No. 2 Stratafix, barbed suture. Deep tissues were then reapproximated with 0 Vicryl and 2-0 Vicryl. The skin was closed with a running 3-0 Monocryl in a subcuticular fashion. This was reinforced with skin glue. A Mepilex silver dressing was applied along with a [id number] LAVERN wrap. A CryoCuff was applied. Zach was transferred to the hospital bed without difficulty an suffering no apparent complication. Zach has a good prognosis. Physical therapy will start today and without restrictions, weight-bearing as tolerated. Aspirin 81mg BID will be used for DVT prophylaxis. Date of Procedure: 07/06/25
[2025-07-06] MEDS: ceFAZolin 3,000 MG in Normal Saline 100 ML 200 MG IV (09:16)
[2025-07-06] MEDS: TRANEXAMIC ACID/SOD. CHL. 1,000 MG/100 ML BAG 600 MG IVPB (09:28)
--- NOTE | 2025-07-06 09:40 | W.ANESNERVE ---
Nerve Block Single Injection Procedure Date and Time Date Performed: 07/06/25 Procedure Start: : Location Where Procedure Performed Procedure Location: Day Surgery Unit Reason Performed: Postoperative Analgesia Requesting Provider: Deni Jo Timeout Performed Timeout Performed: Yes Monitoring Used ECG, Blood Pressure, SpO2 and See EMR for corresponding vital signs Sterility Sterility: Hand Hygiene, Surgical Cap, Surgical Mask, Sterile Gloves and Chlorhexidine Sedation Given During Procedure Sedation Given (Indicate Dose Given): No Sedation given Patient Mental Status Patient Mental Status: Awake Nerve Block 1st Nerve Block: Laterality: Left Block Type: Adductor Canal Ultrasound Image Saved?: Yes Needle / Catheter Used: 100mm SonoPlex II Local Anesthetic Bolus (Indicate Dose Given): Lidocaine used for local infiltration of skin, Injected in 3-5ml increments after negative blood aspiration, Bupivacaine 0.25% Dose:: 10mL and Exparel Dose:: 10mL Additives (Indicate Dose Given): None Ultrasound: Sterile probe cover and gel used Nerve Stimulator: Supplement to Ultrasound use and No twitch or parasthesia noted < 0.5 mA Paresthesia: None Procedure Tolerated: No Complications and Patient tolerated well Procedure Outcome: Successful Performed By: Lora Guy
[2025-07-06] MEDS: HYDROmorphone 2 MG/ML SYR IVP (11:20)
[2025-07-06] MEDS: Normal Saline Flush 10 ML SYR IV (11:21)
--- NOTE | 2025-07-06 13:01 | W.ANESPOSTOP ---
Postoperative Evaluation Date, Time and Location Date Performed: 07/06/25 Time Performed: 13:02 Patient Location: Day Surgery Unit Vital Signs Most Recent Imported Vital Signs: Most Recent Vital Signs Temp Pulse Resp BP Pulse Ox 36.4 C L 81 15 157/90 H 96 07/06/25 12:21 07/06/25 12:21 07/06/25 12:21 07/06/25 12:21 07/06/25 12:21 Pain Score Most Recent Pain Score: Most Recent Pain Score Pain Level 3 07/06/25 12:21 Assessment Mental Status: Awake (Alert & Oriented to Patient Baseline) Airway and Respiratory Function: Patent airway with normal (patient baseline) respiratory exam Cardiovascular Function: Hemodynamically Stable Hydration Status: Adequately Hydrated Nausea & Vomiting: No Nausea or Vomiting Pain: Pain is tolerable per patient Peripheral Nerve Block: Regional nerve block not resolved at time of post operative discharge
[2025-07-06] MEDS: Tranexamic Acid 650 MG TAB 1300 MG PO (13:17)
[2025-07-06] MEDS: oxyCODONE 5 MG TAB PO (13:17)
--- NOTE | 2025-07-06 14:35 | PT.INIE ---
PT Notes Visit Reasons: Left knee DJD Physical Therapy Day Surgery Initial Evaluation Date: 07/06/2025 Referring Doctor: Sangita Palumbo NP/ Dr Jo PT Orders: PT CONSULT: s/p Ortho surgery Precautions:WBAT with AD LLE Patient Profile/Admitting Diagnosis: Zach is a 55yo male presenting s/p elective left TKA d/t DJD under spinal anesthesia. post op day 0. Post op complicated by pain management as pt initially declined pain meds. PMHX: Hypothyroid (Chronic ~01/2025) Sessile serrated polyp of colon (Acute ~05/2022) Grn Mtn Gastro (Alea Grullon)Depression (Chronic) [facility] manages; h/o psychiatric hospitalization at [place] s/p work-related injuryChronic pain (Chronic) Neck and RUE (dominant)History of nicotine use (Acute) Gastroesophageal reflux disease with esophagitis and hemorrhage (Acute) Sympathetic reflex dystrophy, upper limb (Chronic) CRPS type 1 RUESleep apnea (Chronic) CPAP--NCHMorbid obesity (Acute) Mixed hyperlipidemia (Acute) Essential (primary) hypertension (Acute) Cervical radiculopathy (Chronic) Osteoarthritis of left knee (Acute) DEPO MEDROL 03/15/25 Medical History Chronic prescription opiate use Elevated LFTs Tobacco abuse Surgical History Hx of knee surgery from recordsHx of appendectomy from recordsHx of colonoscopy with polypectomy (~06/01/24) Social History/Home Situation: Pt resides in 1 level home with no steps to enter. Pt independent prior to surgery Equipment Owned/DME: Fitted for and issued Bariatric FWW Subjective: Pt stating he does not want any pain meds and wants to attempt PT without use of medication. Nurse and this PT strongly encouraged him to take meds prior to session for which he declined. Pt stated he is disabled and has no DME at home. Objective: [] General Observation: you male presented semireclined on stretcher on his phone with cryocuff to left knee and his mother present in his room. Mental Status: A+Ox4, cooperative, able to follow instructions, agreeable to participate Pain: initially 5 pt refused pain meds pain increased to 8/10 pt then took pain meds reassessed after 1 hour 02/18 ROM: BUE: WFL Right Lower Extremity: WFL Left Lower Extremity: hip and ankle WFL knee 0-90 degrees Strength: BUE : 5/5 Right Lower Extremity: 5/5 Left Lower Extremity: Hip flexion: 2+/5; hip abduction: 2 /5; hip extension: 3- /5; knee extension: 3 /5; knee flexion: 2 /5 ankle DF: 3/5 ; ankle PF: 3/5, able to elicit quad set without compensation with cues, able to perform SLR without lag in shortened range Sensation: intact Bed Mobility/Transfers: [] Supine to sit independent Sit to stand SBA with cues for hand placement Stand to sit SBA with cues for hand placement Bed to chair SBA with Bariatric FWW Gait: 80 feet with Bariatric FWW SBA cues to push FWW as pt utilizing as standard walker lifting to advance. Pt with excessive WB through BUE to unweight LLE, absent knee flexion on left swing phase, decreased step length. Balance: [] Static Sitting: Normal Dynamic Sitting: good Static Standing: Good with BUE support Dynamic Standing:Fair with BUE support Special Tests: [] Mobility Limitations Standardized Measure [] [facility] 6 clicks Basic Mobility Inpatient Short Form: [] Raw Score:22 CMS Score:20.91% Informed Consent/Education: Patient instructed in purpose of PT consult. Packet containing TKA exercise protocol has been given to patient. Education and training on initial set of exercises that can be done at home have been completed with patient. Treatment: 58031: sit to stand from various surfaces at FWW with SBA and cues for hand placement. Assessment: Pt initially approached for assessment and pt declined pain meds prior. He was able to perform therex and bed mobility. Upon standing at EOB with FWW ptnoted increase in painin left knee. Pt wanted to attempt steps and and was able to ambulate 11 feet to chair . He noted pain at 06/20 Nurse Maddox was notified and pain meds were provided Cryocuff placed and pt allowed to rest to allow medication to work. On second attempt ~1 hour later pt was able to ambulte 80 feet with FWW with less pain . Patient presents with clinical signs and symptoms consistent with current/admitting diagnoses that have resulted to mobility limitations, gait instability, generalized weakness, and impairment of motor control as demonstrated by the following impairment level findings: 1. Decreased strength to left knee major muscle groups 2. Impaired standing balance 3. Limitation of joint range of motion in left knee 4. Pain left knee 5. Impaired functional activity tolerance 6. Impaired insight into deficits Impairments are contributing to the following functional limitations: 1. Inability to safely ambulate without assistive device 2. Increase completion time for mobility ADL performance 3. Increased fall risk 4. Impaired transfer skills Patient is assessed as a low complexity based on the following: History: 55-year-old male with impairment level findings, functional limitations, and past medical history as indicated above Examination: Demonstrable impairment in strength, balance, and mobility level with underlying impairments and functional limitations as documented above Presentation: evolving Decision Making: low Goals: N/A. PT evaluation and 1-2 treatment sessions only for functional mobility training using recommended AD and for HEP instruction. Plan of Care/Treatment Plan: N/A. PT evaluation and 1-2 treatment session only for functional mobility training using recommended AD and for HEP instruction. DISCHARGE RECOMMENDATIONS:Home with HEP and outpatient PT as scheduled TREATMENT CODE/TIME: 86866, [id number]/ [id number], [id number] Thank you for the opportunity to participate in the care of this patient. Fatimah Lang, PT [facility]
== END 2025-07-06 14:50 | disposition home or self-care (01) ==
PROVIDERS: PCP Nurse Practitioner Adult Health; Visit Provider Student in an Organized Health Care Education/Training Program
PROC: (CPT 27447; principal; 2025-07-06 09:30)
DX: M17.12 Unilateral primary osteoarthritis, left knee (principal); G89.18 Other acute postprocedural pain
CPT/HCPCS: 27447; 64447; 97161; 97530; C1776; J0665; J0666; J0690; J1171; J2003; J2250; J2401; J2405; J2704

== ENCOUNTER 2025-07-08 09:24 | Emergency (ER) | payer MEDICARE, MEDICAID, SELFPAY ==
[2025-07-08 09:28] VITALS: BP 166/96; PULSE 92; RESP 16; TEMP 36.1; O2SAT 95
[2025-07-08] MEDS: MORPHine IR 15 MG TAB 30 MG PO (10:07)
--- NOTE | 2025-07-08 10:49 | W.ED.GENAD ---
Discharge Plan Disposition Patient Disposition: Home Condition: Good Discharge Details Clinical Impression: Acute postoperative pain of left knee Primary Care Provider: Angeline Weaver ED Provider: Sumanth Salazar Home Meds and New Rx's Prescriptions: No Action bupropion HCl 150 mg tablet extended release 24 hr 150 mg PO QAM sertraline 100 mg tablet 100 mg PO BID celecoxib [Celebrex] 200 mg capsule 200 mg PO BID Qty: 180 3RF omeprazole 20 mg capsule,delayed release(DR/EC) 20 mg PO BID Qty: 180 3RF pregabalin [Lyrica] 25 mg capsule 25 mg PO BID Qty: 180 3RF levothyroxine [Synthroid] 75 mcg tablet 75 mcg PO DAILY Qty: 90 3RF Rx Instructions: Dose increase (05/12/2025) aspirin 81 mg tablet,delayed release (DR/EC) 81 mg PO BID 30 Days Qty: 60 0RF acetaminophen 500 mg tablet 1,000 mg PO Q8H PRN Qty: 90 0RF Rx Instructions: Take two tablets up to every 8 hours as needed for pain dexamethasone 4 mg tablet 4 mg PO DAILY Qty: 2 0RF Rx Instructions: Take one tablet once daily for two days docusate sodium [Colace] 100 mg capsule 100 mg PO BID Qty: 28 0RF oxycodone 5 mg tablet 5 mg PO Q4H PRNQty: 18 0RF Rx Instructions: Take one tablet up to every 4 hours as needed for severe postoperative pain cefadroxil 500 mg capsule 500 mg PO BID Qty: 14 0RF Discharge Instructions Instructions: Managing acute pain at home Additional Instructions: At this time there is no more active hemorrhage from your left knee. Your compartments are soft, your pulses are intact, your sensation is still present. Please continue to keep your knee bandage. If there is continued bleeding then please change the bandage once or twice per day. Please continue to ice your knee, and keep your compression device on to help with the swelling. Please continue to take Tylenol. If your home narcotics are not sufficient enough for pain management, please take one of the morphine tablets that were given only as needed for absolute breakthrough pain. Please be aware that this can cause increased sedation, and so do this very cautiously and only 1 being monitored by another family member or healthcare professional. If you notice any worsening of your symptoms, or any new symptoms such as vomiting, diarrhea, fever, chills, shortness of breath, chest pain, numbness, weakness, or fainting , please return immediately to the emergency department for reevaluation. Please follow up with your primary care provider as soon as possible for reassessment and reevaluation. As always, it was a pleasure participating in your medical care today. Referrals: Angeline Weaver NP [Primary Care Provider, Medicine] Deni Jo MD [ [facility] STAFF PHYSICIAN, Orthopaedic Surgical] HPI General Date/Time Provider Initiated Documentation: 07/08/25 09:28. HPI Narrative: This is a 55-year-old male this is a 55-year-old male with a past medical history of depression, obesity, hypertension, GERD, sleep apnea, who had a recent left total knee replacement on 07/06/2025 who presents today for evaluation of postoperative bleeding. Patient did well with the surgery 2 days ago, however he was at home and last night his dog jumped on his leg, and subsequently had notable bleeding from that area. He had to rebandaged the area with additional pads, and then came in today for further evaluation. He states that the pain was notably worse despite taking the oral narcotics. He admits to some chronic tingling, but no new significant change in sensation otherwise. He denies fever or chills. No other complaints. No other modifying factors. He did contact the orthopedic office, and they did recommend he come in for further assessment. Related Data Home Medications ?Medication ?Instructions ?Recorded ?Confirmed bupropion HCl 150 mg 24 hr tablet, 150 mg PO QAM 12/09/24 07/08/25 extended release sertraline 100 mg tablet 100 mg PO BID 12/09/24 07/08/25 celecoxib 200 mg capsule (Celebrex) 200 mg PO BID #180 caps 02/08/25 07/08/25 omeprazole 20 mg capsule,delayed 20 mg PO BID #180 caps 02/08/25 07/08/25 release pregabalin 25 mg capsule (Lyrica) 25 mg PO BID #180 caps 02/08/25 07/08/25 levothyroxine 75 mcg tablet 75 mcg PO DAILY #90 tabs 07/01/25 07/08/25 (Synthroid) acetaminophen 500 mg tablet 1,000 mg (2 x 500 mg) PO Q8H PRN 07/06/25 07/08/25 pain #90 tabs aspirin 81 mg tablet,delayed 81 mg PO BID 30 days #60 tabs 07/06/25 07/08/25 release cefadroxil 500 mg capsule 500 mg PO BID #14 caps 07/06/25 07/08/25 dexamethasone 4 mg tablet 4 mg PO DAILY #2 tabs 07/06/25 07/08/25 docusate sodium 100 mg capsule 100 mg PO BID #28 caps 07/06/25 07/08/25 (Colace) oxycodone 5 mg tablet 5 mg PO Q4H PRN #18 tabs 07/06/25 07/08/25 Previous Rx's ?Medication ?Instructions ?Recorded celecoxib 200 mg capsule (Celebrex) 200 mg PO BID #180 caps 02/08/25 omeprazole 20 mg capsule,delayed 20 mg PO BID #180 caps 02/08/25 release pregabalin 25 mg capsule (Lyrica) 25 mg PO BID #180 caps 02/08/25 levothyroxine 75 mcg tablet 75 mcg PO DAILY #90 tabs 07/01/25 (Synthroid) acetaminophen 500 mg tablet 1,000 mg (2 x 500 mg) PO Q8H PRN 07/06/25 pain #90 tabs aspirin 81 mg tablet,delayed 81 mg PO BID 30 days #60 tabs 07/06/25 release cefadroxil 500 mg capsule 500 mg PO BID #14 caps 07/06/25 dexamethasone 4 mg tablet 4 mg PO DAILY #2 tabs 07/06/25 docusate sodium 100 mg capsule 100 mg PO BID #28 caps 07/06/25 (Colace) oxycodone 5 mg tablet 5 mg PO Q4H PRN #18 tabs 07/06/25 Allergies Allergy/AdvReac Type Severity Reaction Status Date / Time aripiprazole Allergy Unknown Nausea Verified 07/08/25 09:31 fentanyl AdvReac Unknown Other (See Verified 07/08/25 09:31 Comment) tramadol AdvReac Unknown Other (See Verified 07/08/25 09:31 Comment) General Stated Complaint: Cellulitis SHANNON: 3 Exam Narrative Exam Narrative: 1.Const: Well-nourished, Well-developed, appearing stated age 2.Eyes: PERRL, no conjunctival injection, and symmetrical lids. 3.ENT: Atraumatic external nose and ears. Moist MM. Neck: Symmetric, trachea midline, No thyromegaly. 4.CVS: +S1/S2, Peripheral pulses 2+ and equal in all extremities. Brisk capillary refill in all extremities. 5.RESP: Unlabored respiratory effort. Clear to auscultation bilaterally. No wheezes rales or rhonchi 6.GI: Soft, Nontender/Nondistended, No hepatosplenomegaly. No guarding or rebound. 7.MSK: Left leg demonstrates appropriate postoperative site. No active bleeding or hemorrhage. No atypical redness. Mild appropriate warmth, but no acute cellulitis. Mild swelling throughout the knee and upper desai, but pain is not out of proportion. Compartments are soft. Distal exam demonstrates intact sensation throughout the foot, no neurologic or vascular deficit. No pulse deficit. Dorsalis pedis and posterior tibial pulse +2 bilaterally. 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 Sensation grossly intact, no focal neurologic deficits. 10.Psych: (AAO) x3. Appropriate mood and affect Course Vital Signs Vital signs: Vital Signs Temperature 36.1 C L 07/08/25 09:28 Pulse 92 H 07/08/25 09:28 Respiratory Rate 16 07/08/25 09:28 Blood Pressure 166/96 H 07/08/25 09:28 Pulse Oximetry 95 07/08/25 09:28 Temperature 36.1 C L 07/08/25 09:28 Temperature Source Oral 07/08/25 09:28 Pulse 92 H 07/08/25 09:28 Respiratory Rate 16 07/08/25 09:28 Blood Pressure 166/96 H 07/08/25 09:28 Blood Pressure Position Sitting 07/08/25 09:28 Pulse Oximetry 95 07/08/25 09:28 Oxygen Delivery Method Room Air 07/08/25 09:28 Oxygen Flow Rate 0 07/08/25 09:28 Pain Level 10 07/08/25 09:28 Medical Decision Making This is a 55-year-old male this is a 55-year-old male with a past medical history of depression, obesity, hypertension, GERD, sleep apnea, who had a recent left total knee replacement on 07/06/2025 who presents today for evaluation of postoperative bleeding. Patient did well with the surgery 2 days ago, however he was at home and last night his dog jumped on his leg, and subsequently had notable bleeding from that area. He had to rebandaged the area with additional pads, and then came in today for further evaluation. He states that the pain was notably worse despite taking the oral narcotics. He admits to some chronic tingling, but no new significant change in sensation otherwise. He denies fever or chills. No other complaints. No other modifying factors. He did contact the orthopedic office, and they did recommend he come in for further assessment. Left leg demonstrates appropriate postoperative site. No active bleeding or hemorrhage. No atypical redness. Mild appropriate warmth, but no acute cellulitis. Mild swelling throughout the knee and upper desai, but pain is not out of proportion. Compartments are soft. Distal exam demonstrates intact sensation throughout the foot, no neurologic or vascular deficit. No pulse deficit. Dorsalis pedis and posterior tibial pulse +2 bilaterally. No evidence of active bleeding at this time. Please see image below. Patient was given morphine IR orally. This resolved his pain. With no evidence of infection, significant hemodynamic compromise, active bleeding or hemorrhage, fever, tachycardia or hypotension I do not see an indication for laboratory evaluation at this time. We did send an image to Dr. Jo, he does recommend we bandaging. Patient was rebandaged and tolerated this well. Patient will follow-up outpatient with orthopedics as needed. Recommend continued ice, NSAIDs, we did give 4 morphine tablets to use as needed for breakthrough pain of his scheduled oxycodone is not enough. Discussed the risks of this. Discussed red flags for which to return. I have extensively reviewed the treatment plan and discharge instructions with the patient and their family. I have addressed all patient concerns at this time. The patient and family was made aware of what symptoms to monitor for that would warrant a return to the emergency department. I suspect the dog hit the leg which led to a small tract that allowed bleeding from the natural postoperative hematoma. As no active bleeding is present now, no indication for further surgical intervention. Discussed the plan with the patient and family, they demonstrate verbal understanding and agreement with our assessment and plan at this time. The documentation in this chart was dictated using [employer] dictation software. Please excuse any dictation errors. PFSH All Active Problems (Updated 07/08/25 @ 10:50 by Sumanth R Marie, DO) Acute postoperative pain of left knee (Acute) History of total left knee replacement (Acute 07/06/25) Lipoma of neck (Acute ~07/2024) Hypothyroid (Chronic ~01/2025) Sessile serrated polyp of colon (Acute ~05/2022) Grn Mtn Gastro (Alea Grullon) Depression (Chronic) 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 Sleep apnea (Chronic) CPAP--[facility] Morbid obesity (Acute) Mixed hyperlipidemia (Acute) Essential (primary) hypertension (Acute) Cervical radiculopathy (Chronic) w/ R arm weakness Medical History (Updated 07/08/25 @ 10:50 by Sumanth Salazar DO) Mass of right side of neck (~07/2024) H/O chest pain 03/17/24, 08/25/24, 09/16/24 Chronic prescription opiate use Elevated LFTs Tobacco abuse Surgical History (Updated 07/06/25 @ 09:00 by Shira Varela RN) Hx of knee surgery from records Hx of appendectomy from records Hx of colonoscopy with polypectomy (~06/01/24) Family History Mother Diabetes Neuropathy Obesity Heart disease Father , from MVA when pt 11yo No problems noted. 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
[2025-07-08] MEDS: MORPHine IR 15 MG TAB, 4 TABS/BTL PO (11:00)
== END 2025-07-08 11:07 | disposition home or self-care (01) ==
PROVIDERS: Emergency Provider Student in an Organized Health Care Education/Training Program; PCP Nurse Practitioner Adult Health
DX: G89.18 Other acute postprocedural pain (principal); Z96.652 Presence of left artificial knee joint
CPT/HCPCS: 99283

== ENCOUNTER → 2025-07-19 09:40 | Outpatient (BNVA) | payer MEDICARE, MEDICAID, SELFPAY | PROVIDERS: PCP Nurse Practitioner Adult Health; Referring Provider Nurse Practitioner Adult Health; Visit Provider Student in an Organized Health Care Education/Training Program | DX: Z47.1 Aftercare following joint replacement surgery (principal); Z96.652 Presence of left artificial knee joint; T81.31XA Disruption of external operation (surgical) wound, not elsewhere classified, initial encounter | CPT/HCPCS: 97607 ==

== ENCOUNTER 2025-07-19 16:05 | Outpatient (CLI) | payer MEDICARE, MEDICAID, SELFPAY ==
--- NOTE | 2025-07-16 11:03 | DI.RAD_ITS ---
Exam(s) XR KNEE LT 1V XR STANDING ALIGNMENT EXAM: XR STANDING ALIGNMENT CLINICAL HISTORY: TKR f/u. TECHNIQUE: 2D digital imaging was performed. Standing AP views were performed from the pelvis through the ankles. Lateral view of the left knee COMPARISON: CR XR STANDING ALIGNMENT from 06/14/2025 CR XR KNEE LT 1V from 07/16/2025 FINDINGS: BONES: No acute fracture is present. No bony destructive lesion is seen. Leg length discrepancy: No significant overall leg length discrepancy. JOINTS: Knees: A left total knee prosthesis has been placed. The alignment appears satisfactory. The right knee joint spaces are maintained. The ankle joints are unremarkable. The hip joints are are not well seen due to under penetration and patient body habitus. SOFT TISSUE: Normal. IMPRESSION: Status post placement left knee prosthesis. No significant leg length discrepancy. DATA REPOSITORY: RADIATION DOSE DELIVERED:
== END 2025-07-19 16:06 | disposition home or self-care (01) ==
LOC: DIORS 16:06
PROVIDERS: PCP Nurse Practitioner Adult Health; Referring Provider Nurse Practitioner Adult Health; Visit Provider Student in an Organized Health Care Education/Training Program
DX: Z47.1 Aftercare following joint replacement surgery (principal); Z96.652 Presence of left artificial knee joint
CPT/HCPCS: 99024; 73560; 77073

== ENCOUNTER → 2025-08-02 09:34 | Outpatient (BNVA) | payer MEDICARE, MEDICAID, SELFPAY | PROVIDERS: PCP Nurse Practitioner Adult Health; Referring Provider Nurse Practitioner Adult Health; Visit Provider Student in an Organized Health Care Education/Training Program | DX: T81.31XD Disruption of external operation (surgical) wound, not elsewhere classified, subsequent encounter (principal); G89.18 Other acute postprocedural pain; Z96.652 Presence of left artificial knee joint | CPT/HCPCS: 99024 ==

== ENCOUNTER → 2025-08-26 12:50 | Outpatient (BNVA) | payer MEDICARE, MEDICAID, SELFPAY | PROVIDERS: PCP Nurse Practitioner Adult Health; Referring Provider Nurse Practitioner Adult Health; Visit Provider Student in an Organized Health Care Education/Training Program | DX: Z47.1 Aftercare following joint replacement surgery (principal); Z96.652 Presence of left artificial knee joint | CPT/HCPCS: 99024 ==

== ENCOUNTER → 2025-09-16 10:53 | Outpatient (BNVA) | payer MEDICARE, MEDICAID, SELFPAY | PROVIDERS: PCP Nurse Practitioner Adult Health; Referring Provider Nurse Practitioner Adult Health; Visit Provider Student in an Organized Health Care Education/Training Program | DX: Z47.1 Aftercare following joint replacement surgery (principal); Z96.652 Presence of left artificial knee joint | CPT/HCPCS: 99024 ==